=== PATIENT | female | born 1940 | race Caucasian/White ===

== ENCOUNTER 2022-11-09 18:29 | Emergency (ER) | payer OTHER, BC ==
[2022-11-09 18:47] VITALS: TEMP 97.6
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
--- NOTE | 2022-11-09 20:04 | XR ---
EXAMINATION TYPE: XR pelvis AP view DATE OF EXAM: 11/09/2022 CLINICAL HISTORY: pain TECHNIQUE: Single view the pelvis is submitted. FINDINGS: No evidence for fracture, dislocation or bony lesion. Joint spaces are well-preserved. S I joints appear symmetric. Intramedullary lesion proximal left femur may reflect chondroid lesion. Al so consider bone infarct. IMPRESSION: 1. No acute fracture or dislocation seen. ICD 10 NO FRACTURE, INITIAL EVALUATION
--- NOTE | 2022-11-09 20:05 | XR ---
EXAMINATION TYPE: XR chest 1V DATE OF EXAM: 11/09/2022 HISTORY: Shortness of breath. COMPARISON: None. TECHNIQUE: Single view of the chest is submitted. FINDINGS: Demonstrated are scattered senescent parenchymal change. There is no evidence for focal infiltrate. The heart is stable. Hilar and mediastinal structures are within normal limits. Degenerative changes are seen of the dorsal spine. IMPRESSION: 1. Chronic changes without evidence for acute pulmonary disease.
--- NOTE | 2022-11-09 20:05 | XR ---
EXAMINATION TYPE: XR hand complete LT DATE OF EXAM: 11/09/2022 CLINICAL HISTORY: pain TECHNIQUE: Frontal, lateral and oblique images of the left hand are obtained. COMPARISON: None. FINDINGS: Transversely oriented fracture at the base of the proximal phalanx left fifth digit with 1 mm displacement and mild angulation. No intra-articular extension seen. No additional fractures ident ified. Advanced degenerative changes involving the first carpal metacarpal joint space. IMPRESSION: Fracture at the base of the proximal phalanx left fifth digit
[2022-11-09] MEDS ORDERED: HYDROcodone/APAP 5-325MG 1 EACH TAB PO STA (20:40)
[2022-11-09 20:42] LABS: Basophils # (A) 0.1 k/uL (0-0.2); Basophils % (A) 1 %; Eosinophils # (A) 0.1 k/uL (0-0.7); Eosinophils % (A) 1 %; HCT 37.8 % (34.0-46.0); HGB 12.2 gm/dL (11.4-16.0); Lymphocytes % (A) 17 %; MCH 27.4 pg (25.0-35.0); MCHC 32.3 g/dL (31.0-37.0); Mean Platelet Volume 9.3; Monocytes # (A) 0.4 k/uL (0-1.0); Monocytes % (A) 7 %; Neutrophils # (A) 4.3 k/uL (1.3-7.7); Neutrophils % (A) 72 %; Platelet Count 204 k/uL (150-450); RBC 4.45 m/uL (3.80-5.40); RDW 14.6 % (11.5-15.5); WBC 5.9 k/uL (3.8-10.6)
[2022-11-09] MEDS ORDERED: LIDOCAINE 1%-EPI 1:100,000 20 ML VIAL SQ STA (20:46)
[2022-11-09 21:01] LABS: Albumin 3.7 g/dL (3.5-5.0); Calcium 8.6 mg/dL (8.4-10.2); Potassium 3.9 mmol/L (3.5-5.1); Total Bilirubin 0.4 mg/dL (0.2-1.3); Total Protein 6.3 g/dL (6.3-8.2)
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
[2022-11-09] MEDS ORDERED: traMADol 50 MG STARTER PACK 3 TAB BTL PO STA (21:34)
[2022-11-09 22:50] VITALS: BP 138/59; PULSE 75; RESP 16
== END 2022-11-09 22:00 | disposition home or self-care (01) ==
LOC: EC 18:29
DX: S09.90XA Unspecified injury of head, initial encounter (principal); I67.82 Cerebral ischemia; J98.4 Other disorders of lung; V89.2XXA Person injured in unspecified motor-vehicle accident, traffic, initial encounter; Y92.411 Interstate highway as the place of occurrence of the external cause
CPT/HCPCS: 12001; 29125; 36415; 70450; 71045; 72125; 72170; 80053; 83690; 85025; 99284